=== PATIENT | female | born 1995 | race Two or more races ===

== ENCOUNTER 2021-02-28 20:42 | Inpatient (IN) | payer MEDICAID ==
[~2021-02-28 20:42] MED LIST: ANUSOL-HC CREAM30 GM PR; COLACE 100MG C100 MG PO; DULCOLAX5 MG PO; ENULOSE10 GM/15 M PO; ZANTAC150 MG PO; ZOFRAN4 MG PO
[2021-02-28 22:44] LABS: HEMOGLOBIN 13.4 gm/dl (12.3-15.3); RED BLOOD COUNT 4.05 M/UL (4.00-5.10); WHITE BLOOD COUNT 8.7 K/UL (4.5-11.0)
[2021-03-01] MEDS ORDERED: IBUPROFEN600 MG PO (14:28)
[2021-03-01] MEDS ORDERED: DOCUSATE SODIU250 MG PO (14:28)
[2021-03-02 07:35] LABS: HEMOGLOBIN 13.3 gm/dl (12.3-15.3)
== END 2021-03-02 18:26 | disposition home or self-care (01) | DRG 807 ==
LOC: GENOP 20:42 → OB 22:08
PROVIDERS: Obstetrics & Gynecology; ADMIT Obstetrics & Gynecology
PROC: 10E0XZZ Delivery of Products of Conception, External Approach (ICD-10-PCS; principal; 2021-03-01)
PROC: 0KQM0ZZ Repair Perineum Muscle, Open Approach (ICD-10-PCS; 2021-03-01)
PROC: 4A1HXCZ Monitoring of Products of Conception, Cardiac Rate, External Approach (ICD-10-PCS; 2021-03-01)
PROC: 3E02340 Introduction of Influenza Vaccine into Muscle, Percutaneous Approach (ICD-10-PCS; 2021-03-01)
DX: O48.0 Post-term pregnancy (principal); Z37.0 Single live birth; Z3A.40 40 weeks gestation of pregnancy; O99.214 Obesity complicating childbirth; E66.9 Obesity, unspecified; Z20.822 Contact with and (suspected) exposure to COVID-19; O70.1 Second degree perineal laceration during delivery; Z23 Encounter for immunization
CPT/HCPCS: 36415; 51702; 81001; 83518; 85014; 85018; 85025; 90686; 94761; G0008; J2590; J7120; U0002